=== PATIENT | female | born 1990 | race American Indian/Alaskan Native ===

== ENCOUNTER 2016-07-19 09:44 | Inpatient (IN) | payer MEDICAID, OTHER ==
--- NOTE | 2016-07-19 08:02 | History and Physical Report ---
History of Present Illness Date of examination: 07/19/16 Date of admission: 07/19/2016 Chief complaint: previous History of present illness: 26y/o @ 39+5 weeks with a history of prior delivery. care initiated in the first trimester. initially complicated by THC use that the patient discontinued in . GBS negative P Past History Past Medical History: no pertinent history Past Surgical History: section Social history: single - Obstetrical History Expected Date of Delivery: 07/21/16 Actual Gestation: 39 Week(s) 5 Day(s) : 3 Para: 1 Hx # Term Pregnancies: 1 Number of Pregnancies: 0 Spontaneous Abortions: 0 Induced : 1 Number of Living Children: 1 Medications and Allergies Allergies Allergy/AdvReac Type Severity Reaction Status Date / Time sulfamethoxazole Allergy Itching Verified 01/20/15 20:23 [From Bactrim] trimethoprim [From Bactrim] Allergy Itching Verified 01/20/15 20:23 Home Medications Medication Instructions Recorded Confirmed Last Taken Type No Known Home Medications [No 01/20/15 01/20/15 Unknown History Reported Home Medications] Review of Systems All systems: negative Genitourinary: no vaginal bleeding, no leakage of fluid, no contractions - Physical Exam Breasts: Positive: deferred Cardiovascular: Regular rate Lungs: Positive: Clear to auscultation Abdomen: Positive: normal appearance, soft - Obstetrical FHR: category 1 Uterine Contraction Monitor Mode: External Results All other labs normal. Assessment and Plan - Patient Problems (1) Previous delivery affecting Status: Acute Plan to address problem: scheduled for a RLTCS
[~2016-07-19 09:44] MED LIST: LACTATED RINGERS 1,000 ML IV SCH; PITOCin/NS 20 UNIT/1000ML DRIP 20 UNITS/1,000 ML BAG IV SCH
[2016-07-19] MEDS ORDERED: BICITRA PO NR (10:30)
[2016-07-19] MEDS ORDERED: REGLAN IV NR (10:30)
[2016-07-19] MEDS ORDERED: PEPCID IV NR (10:30)
[2016-07-19] MEDS ORDERED: ANCEF/STERILE WATER 2 GM/20 ML 2 GM/20 ML SYRINGE IV NR (10:30)
--- NOTE | 2016-07-19 10:58 | Anesthesia Day of Surgery ---
Anesthesia Day of Surgery - Day of Surgery Patient Examined: Yes Patient H&P Reviewed: Yes Patient is NPO: Yes
--- NOTE | 2016-07-19 10:58 | Anesthesia Consultation ---
Anesthesia Consult and Med Hx Date of service: 07/19/16 - Airway Anesthetic Teeth Evaluation: Good ROM Head & Neck: Adequate Mental/Hyoid Distance: Adequate Mallampati Class: Class II Intubation Access Assessment: Probably Good - Pre-Operative Health Status ASA Pre-Surgery Classification: ASA2 Proposed Anesthetic Plan: Spinal - Additional Comments Anesthesia Medical History Comments: no medical problems
[2016-07-19] MEDS ORDERED: SODIUM CHLORIDE FLUSH SYRINGE 10 ML IV PRN (11:00)
[2016-07-19 11:05] LABS: Hematocrit 34.7 % (30.3-42.9); Hemoglobin 11.6 gm/dl (10.1-14.3); Mean Corpuscular HGB Conc 33 % (30-34); Mean Corpuscular Hemoglobin 31 pg (28-32); Mean Corpuscular Volume 92 fl (79-97); Platelet Count 242 K/mm3 (140-440); Red Blood Count 3.79 M/mm3 (3.65-5.03); Red Cell Distribution Width 13.3 % (13.2-15.2); White Blood Count 12.2 K/mm3 (4.5-11.0)
[2016-07-19] MEDS ORDERED: BENADRYL IV PRN ×2 (11:30→14:22)
[2016-07-19] MEDS ORDERED: NARCAN 0.4 MG/1 ML IV PRN ×2 (11:30→12:57)
[2016-07-19] MEDS ORDERED: ZOFRAN IV PRN ×2 (11:30→17:45)
[2016-07-19] MEDS ORDERED: DILAUDID IV PRN (11:30)
[2016-07-19] MEDS ORDERED: TORADOL IV PRN (11:30)
[2016-07-19 11:41] LABS: Basophils % (Manual) 0 % (0.0-1.8); Blastocytes % (Manual) 0 %
[2016-07-19 11:42] LABS: Anisocytosis 1+; Diff Status Complete; Polychromasia Few
[2016-07-19] MEDS ORDERED: MORPHINE ONE (11:43)
[2016-07-19] MEDS ORDERED: ePHEDrine SULFATE ONE (11:58)
[2016-07-19] MEDS ORDERED: NACL 0.9% IR ONE (12:22)
[2016-07-19] MEDS ORDERED: WATER FOR IRRIG STERILE IR ONE (12:22)
[2016-07-19] MEDS ORDERED: NACL 0.9% 1000 ML 1,000 ML ONE (12:44)
--- NOTE | 2016-07-19 12:54 | Procedure Note ---
OB Delivery Note - Delivery Date of Delivery: 07/19/16 Surgeon: WIL KRISHNAMURTHY Estimated blood loss: other (750ml) - Section Preop diagnosis: repeat Postop diagnosis: same section procedure: section, repeat low transverse Disposition: PACU Complications: none - Infant A at 1 minute: 9 at 5 minutes: 9 Infant Gender: Male (weight 7lbs 1oz)
--- NOTE | 2016-07-19 12:56 | Operative Report ---
Operative Report Operative Report: Date of surgery: 07/19/2016 Preoperative diagnosis: at 39+3 weeks; previous delivery Postoperative diagnosis: same as above Procedure: Repeat low transverse delivery Surgeon: Hannah Villagran M.D. Anesthesia: Regional Estimated blood loss: 750 mL Findings: Live born male infant with Apgars of 9 and 9 weight 7 lbs. 1 oz. Indications: 26-year-old 011 at 39+ weeks who presents for repeat delivery. Procedure: The patient was taken to the operating room and given regional anesthesia without complication. She was prepped and draped in a normal sterile fashion. A Pfannenstiel skin incision was made down to layer the fascia which was nicked in the midline extended laterally with the Bovie cautery. The superior aspect of the rectus fascia was grasped with [place] clamps x2 and the rectus muscles off sharply. This was done in inferior fashion as well. The rectus muscle midline and peritoneum entered bluntly. An Pieter retractor was then inserted. A bladder blade was placed. The vesicouterine peritoneum was then entered sharply with Metzenbaum scissors. A bladder flap was created digitally. A low transverse uterine incision was then made and extended digitally. There was clear fluid upon entry into the uterine cavity. The head was delivered through the incision with fundal pressure. The cord was clamped and cut x2 and infant was passed off to pediatrics. The placenta was then manually extracted. The uterus was then exteriorized and cleared of clots and debris. The uterine incision was then closed in a running locked fashion with 0 Vicryl additional imbricating stitch was applied for 2 layer closure. The posterior cul-de-sac was then copiously irrigated. The uterus was replaced back into the abdomen and pelvis were the gutters were then irrigated. The Pieter retractor was then removed. The peritoneum was then reapproximated with 3-0 Vicryl incorporating the rectus muscle. The fascia was then closed with 0 Vicryl in a running fashion. The skin was then reapproximated with 3-0 Monocryl on a Eric needle subcuticular fashion. Steri-Strips to place across the incision and a Crede procedures performed at the end of the surgery. A pressure dressing was applied to the incision. The surgery productive of a liveborn male with Apgars of 9 and 9 weight 7 lbs. 1 oz. The patient was taken to the recovery room in stable condition. All sponge laps and needle counts correct x2.
[2016-07-19] MEDS ORDERED: LANSINOH TP PRN (12:57)
[2016-07-19] MEDS ORDERED: TUCKS PAD TP PRN (12:57)
[2016-07-19] MEDS ORDERED: SODIUM CHLORIDE FLUSH SYRINGE 10 ML IV NR (13:00)
[2016-07-19] MEDS ORDERED: ZOFRAN ONE (13:00)
[2016-07-19] MEDS ORDERED: PITOCin/NS 20 UNIT/1000ML DRIP 20 UNITS/1,000 ML BAG IV SCH (13:00)
[2016-07-19] MEDS ORDERED: MORPHINE IV PRN (14:22)
--- NOTE | 2016-07-19 14:22 | Post Anesthesia Evaluation ---
- Post Anesthesia Evaluation Patient Participated: Yes Airway Patent: Yes Stable Respiratory Function: Yes Nausea/Vomiting: No Temp > 96.8F: Yes Pain Manageable: Yes Adequeate Hydration: Yes Anesthesia Complications: No Block Receding Appropriately: Yes Patient on Ventilator: No
[2016-07-19] MEDS ORDERED: TORADOL ONE (18:11)
[2016-07-19 18:20] LABS: Urine Drugs of Abuse Note Disclamer
[2016-07-19] MEDS ORDERED: D5LR 1,000 ML IV SCH (19:00)
[2016-07-20] MEDS: TORADOL PO PRN ×2 (04:20→08:22)
[2016-07-20 06:04] LABS: Hematocrit 27.5 % (30.3-42.9); Hemoglobin 9.2 gm/dl (10.1-14.3)
--- NOTE | 2016-07-20 11:03 | Progress Note ---
Subjective Date of service: 07/20/16 Interval history: 1st POD after Patient is in the bed, relatively comfortable. Pain is mostly controlled with pain meds. Pruritus is controlled with Benadryl. Ambulated well. No residual neurological deficit. No anesthesia complications Objective - Constitutional Vitals: Vital Signs - 12hr 07/20/16 07/20/16 07/20/16 00:00 04:20 09:30 Temperature 98.9 F 98.4 F Pulse Rate [ 76 90 From Monitor] Respiratory 18 18 18 Rate Blood Pressure 126/63 97/62 [Left Arm] - Labs CBC & Chem 7: 07/20/16 05:28 Labs: Abnormal lab results 07/19/16 07/20/16 Range/Units 10:30 05:28 WBC 12.2 H (4.5-11.0) K/mm3 Hgb 9.2 L (10.1-14.3) gm/dl Hct 27.5 L D (30.3-42.9) % Seg Neuts % (Manual) 73.0 H (40.0-70.0) % Seg Neutrophils # Man 8.9 H (1.8-7.7) K/mm3 Monocytes # (Manual) 0.9 H (0.0-0.8) K/mm3
--- NOTE | 2016-07-20 11:22 | Progress Note ---
Assessment and Plan A/P POD#1 s/p repeat c/s doing well male bonding with baby tolerating diet bleeding decreased +flatus routine post op orders Subjective - Subjective Date of service: 07/20/16 Principal diagnosis: repeat c/s Patient reports: appetite normal, voiding normally, pain well controlled, ambulating normally [place]: doing well Objective - Vital Signs Latest vital signs: Vital Signs Temp Pulse Pulse Resp BP BP Pulse Ox 07/20/16 09:30 98.4 F 90 18 97/62 07/20/16 04:20 18 07/20/16 00:00 98.9 F 76 18 126/63 07/19/16 20:50 98.2 F 83 18 97/54 07/19/16 17:44 97.8 F 78 18 106/67 07/19/16 14:25 97.6 F 76 16 112/67 07/19/16 14:10 82 12 106/69 98 07/19/16 14:00 97.6 F 89 12 111/59 98 07/19/16 13:54 15 07/19/16 13:45 75 12 102/64 100 07/19/16 13:30 74 16 103/62 100 07/19/16 13:25 79 16 107/62 100 07/19/16 13:20 82 14 101/59 100 07/19/16 13:15 78 14 104/61 97 07/19/16 13:10 72 18 103/60 97 07/19/16 13:05 79 16 108/66 98 07/19/16 13:00 76 16 104/63 98 07/19/16 12:57 97.6 F 94 H 16 112/61 100 Intake and Output 07/19/16 07/20/16 07/20/16 22:59 06:59 14:59 Intake Total 600 120 120 Output Total 1300 2000 600 Balance -700 -1880 -480 Intake: Oral 600 120 120 Output: Urine 1300 2000 600 Indwelling Catheter 1300 1600 Void 400 600 Other: Total, Intake Amount 240 120 120 Total, Output Amount 900 400 600 - Exam Breasts: Present: normal Cardiovascular: Present: Regular rate, Normal S1 Lungs: Present: Clear to auscultation, Normal air movement Abdomen: Present: normal appearance, soft, normal bowel sounds. Absent: distention, tenderness Vulva: both: normal Uterus: Present: normal, firm, fundal height below umbilicus (3cm below). Absent: bogginess, tenderness Extremities: Present: normal Deep Tendon Reflex Grade: Normal +2 Incision: Present: normal, dry, intact - Labs Labs: Abnormal lab results 07/19/16 07/20/16 Range/Units 10:30 05:28 Hgb 9.2 L (10.1-14.3) gm/dl Hct 27.5 L D (30.3-42.9) % Seg Neuts % (Manual) 73.0 H (40.0-70.0) % Seg Neutrophils # Man 8.9 H (1.8-7.7) K/mm3 Monocytes # (Manual) 0.9 H (0.0-0.8) K/mm3
[2016-07-20] MEDS: MOTRIN PO PRN ×2 (13:14→19:34)
[2016-07-20] MEDS: PERCOCET 5/325 PO PRN ×2 (13:15→21:08)
[2016-07-21] MEDS: MOTRIN PO PRN ×2 (01:46→13:30)
[2016-07-21] MEDS: PERCOCET 5/325 PO PRN ×2 (02:22→09:18)
--- NOTE | 2016-07-21 08:48 | Progress Note ---
Assessment and Plan - Patient Problems (1) Previous delivery affecting Current Visit: Yes Status: Acute Plan to address problem: Patient doing well Discharge home Subjective - Subjective Date of service: 07/21/16 Principal diagnosis: repeat c/s Interval history: Patient doing well. She was without any significant complaints. She is tolerating a regular diet. Patient reports: appetite normal, voiding normally, pain well controlled : doing well Objective - Vital Signs Latest vital signs: Vital Signs Temp Pulse Resp BP 07/21/16 01:00 98.3 F 91 H 20 95/56 07/20/16 16:15 98.7 F 91 H 18 107/60 07/20/16 12:55 99.4 F 97 H 20 100/61 07/20/16 09:30 98.4 F 90 18 97/62 Intake and Output 07/20/16 07/21/16 07/21/16 22:59 06:59 14:59 Intake Total 240 360 Balance 240 360 Intake: Oral 240 Intake, Free Water 360 Other: Total, Intake Amount 240 # Voids Void 1 2 - Exam Abdomen: Present: normal appearance, soft Uterus: Present: normal, firm Incision: Present: normal
--- NOTE | 2016-07-21 08:49 | Discharge Summary ---
Providers - Providers Date of Admission: 07/19/16 09:44 Date of discharge: 07/21/16 Attending physician: WIL KRISHNAMURTHY Primary care physician: MURAL PAINTER Hospitalization Reason for admission: section Delivery: Procedure: section, repeat low transverse Incision: normal baby: male Hospital course: The patient was admitted that he has surgery underwent a scheduled repeat delivery. Please see operative note for details of surgery. Postoperative course was uneventful. Condition at discharge: Good Disposition: DISCHARGED TO HOME OR SELFCARE - Discharge Diagnoses (1) Previous delivery affecting Status: Acute Plan - Discharge Medications Prescriptions: Ferrous Sulfate [Feosol 325 MG tab] 325 mg PO TID #30 tablet Ibuprofen [Motrin] 600 mg PO Q8H PRN #30 tablet PRN Reason: Pain oxyCODONE /ACETAMINOPHEN [Percocet 5/325] 1 tab PO Q6HR PRN #30 tablet PRN Reason: Pain - Provider Discharge Summary Activity: no sex for 6 weeks, no heavy lifting 4 weeks, no strenuous exercise Diet: routine Instructions: routine Additional instructions: [] Smoking cessation referral if applicable(refer to patient education folder for contact #) [] Refer to [facility] Booklet Call your doctor immediately for: * Fever > 100.5 * Heavy vaginal bleeding ( >1 pad per hour) * Severe persistent headache * Shortness of breath * Reddened, hot, painful area to leg or breast * Drainage or odor from incision. * Keep incision clean and dry at all times and follow doctor's instructions regarding bathing/showering Follow-up in 2 weeks for an incision check - Follow up plan
[2016-07-21 14:52] VITALS: BP 100/64
== END 2016-07-21 14:00 | disposition home or self-care (01) | DRG 766 ==
LOC: APU 09:44 → OB 14:28
PROVIDERS: ADMIT Obstetrics & Gynecology; ATTEND Obstetrics & Gynecology
PROC: 10D00Z1 Extraction of Products of Conception, Low, Open Approach (ICD-10-PCS; principal; 2016-07-19)
DX: O34.211 Maternal care for low transverse scar from previous cesarean delivery (principal); Z3A.39 39 weeks gestation of pregnancy; Z37.0 Single live birth; Z88.2 Allergy status to sulfonamides; O26.893 Other specified pregnancy related conditions, third trimester; L29.9 Pruritus, unspecified
CPT/HCPCS: 36415; 80307; 85007; 85014; 85018; 85025; 86850; 86900; 86901; 99211; A6250; G0463; J0690; J1170; J1885; J2270; J2405; J2590; J2765; J7030; J7120; J7121

== ENCOUNTER 2021-08-23 11:30 | Inpatient (IN) | payer MEDICAID ==
[~2021-08-23 11:30] MED LIST changes: -LACTATED RINGERS 1,000 ML IV SCH; -PITOCin/NS 20 UNIT/1000ML DRIP 20 UNITS/1,000 ML BAG IV SCH; +ceFAZolin/STERILE WATER 2 GM/20 ML SYRINGE IV ONE
[2021-08-24 11:59] LABS: Hematocrit 32.4 % (30.3-42.9); Hemoglobin 10.8 gm/dl (10.1-14.3); Mean Corpuscular HGB Conc 33 % (30-34); Mean Corpuscular Volume 88 fl (79-97); Platelet Count 236 K/mm3 (140-440); Red Blood Count 3.67 M/mm3 (3.65-5.03); Red Cell Distribution Width 13.8 % (13.2-15.2)
[2021-08-25] MEDS ORDERED: LACTATED RINGERS 1,000 ML ONE (06:57)
[2021-08-25] MEDS ORDERED: ONDANSETRON 4 MG/2 ML INJ ONE ×2 (07:14→20:14)
[2021-08-25] MEDS ORDERED: ePHEDrine SULFATE 50 MG/1 ML INJ ONE ×2 (07:14→20:14)
[2021-08-25] MEDS ORDERED: PHENYLEPHRINE/NS 1,000 MCG/10 ML SYRINGE (OR USE) IV ONE ×3 (07:14→20:14)
[2021-08-25] MEDS ORDERED: BICITRA ORAL LIQD 30ML PO ONE (08:41)
[2021-08-25] MEDS ORDERED: FAMOTIDINE 20 MG/2 ML INJ IV ONE ×3 (08:41→22:57)
[2021-08-25] MEDS ORDERED: METOCLOPRAMIDE 10 MG/2 ML INJ IV ONE (08:41)
--- NOTE | 2021-08-25 08:41 | History and Physical Report ---
History of Present Illness Date of examination: 08/25/21 Date of admission: 08/25/21 05:40 Chief complaint: Schedule History of present illness: 31-year-old -0-1-2 at 40+3 weeks who presents for scheduled repeat delivery. The patient has a history of 2 prior deliveries. She denies any leakage of fluid or vaginal bleeding. Past History Past Medical History: no pertinent history Past Surgical History: section Social history: - Obstetrical History Expected Date of Delivery: 08/22/21 Actual Gestation: 40 Week(s) 3 Day(s) : 4 Para: 2 Hx # Term Pregnancies: 2 Number of Pregnancies: 0 Spontaneous Abortions: 0 Induced : 1 Number of Living Children: 2 Medications and Allergies Allergies Allergy/AdvReac Type Severity Reaction Status Date / Time sulfamethoxazole Allergy Itching Verified 08/23/21 15:33 [From Bactrim] trimethoprim [From Bactrim] Allergy Itching Verified 08/23/21 15:33 Home Medications Medication Instructions Recorded Confirmed Last Taken Type No Known Home Medications [No 08/23/21 08/23/21 Unknown History Reported Home Medications] Review of Systems All systems: negative Genitourinary: no leakage of fluid, no contractions - Vital Signs Vital signs: Vital Signs Temp Pulse Resp BP Pulse Ox 98.9 F 90 20 102/68 98 08/24/21 11:10 08/24/21 11:10 08/24/21 11:10 08/24/21 11:10 08/24/21 11:10 Temp Pulse Resp BP Pulse Ox 98.2 F 82 20 102/66 99 08/25/21 06:38 08/25/21 07:24 08/24/21 11:10 08/25/21 07:05 08/25/21 07:24 - Physical Exam Breasts: Positive: deferred Cardiovascular: Regular rate Lungs: Positive: Clear to auscultation Abdomen: Positive: normal appearance Results Result Diagrams: 08/24/21 06:00 All other labs normal. Assessment and Plan - Patient Problems (1) Previous delivery affecting Current Visit: No Status: Acute Plan to address problem: Admitted for scheduled delivery Patient has declined tubal ligation
[2021-08-25] MEDS ORDERED: LACTATED RINGERS 1,000 ML IV SCH (08:45)
[2021-08-25] MEDS ORDERED: OXYTOCIN DRIP 30 UNITS/500 ML BAG IV SCH ×2 (09:00→23:00)
[2021-08-25] MEDS ORDERED: ceFAZolin/Water 2 GM/20 ML 2 GM/20 ML SYRINGE IV NR (09:00)
[2021-08-25] MEDS ORDERED: BICITRA ORAL LIQD 30ML ONE ×2 (17:31→22:57)
[2021-08-25] MEDS ORDERED: METOCLOPRAMIDE 10 MG/2 ML INJ ONE ×2 (17:32→22:57)
[2021-08-25] MEDS ORDERED: BUPIVACAINE/PF (0.25%) 2.5 MG/ML 30 ML VIAL INFILTRATI ONE (17:33)
[2021-08-25] MEDS ORDERED: SODIUM CHLORIDE 0.9% 100 ML ONE (17:33)
[2021-08-25] MEDS ORDERED: KETOROLAC 30 MG/1 ML INJ ONE (19:33)
--- NOTE | 2021-08-25 22:44 | Procedure Note ---
OB Delivery Note - Delivery Date of Delivery: 08/25/21 Surgeon: WIL KRISHNAMURTHY Estimated blood loss: other (Qbl 431 mL) - Section Preop diagnosis: repeat Postop diagnosis: same section procedure: section, repeat low transverse Disposition: PACU Complications: none - A at 1 minute: 9 at 5 minutes: 9 Gender: Female (Weight 7 pounds 15 ounces)
--- NOTE | 2021-08-25 22:44 | Operative Report ---
Operative Report Operative Report: Date of surgery: August 25, 2021 Preoperative diagnosis: at 40+1 weeks; previous delivery Postoperative diagnosis: Same as above; breech presentation Procedure: Repeat low transverse delivery Surgeon: Hannah Villagran M.D. Anesthesia: Regional Estimated blood loss:Qbl 431 mL Findings: Liveborn female with Apgars of 9 and 9 weight 7 pounds 15 ounces Indications: 31-year-old at 40+1 weeks who presents for repeat delivery. The patient has a history of 2 prior deliveries and is not a candidate for a vaginal delivery Procedure: The patient was taken to the operating room and given regional anesthesia without complication. She was prepped and draped in a normal sterile fashion. A Pfannenstiel skin incision was made down to layer the fascia which was nicked in the midline extended laterally with the Bovie cautery. The superior aspect of the rectus fascia was grasped with Wes clamps x2 and the rectus muscles off sharply. This was done in inferior fashion as well. The rectus muscle midline and peritoneum entered bluntly. An Pieter retractor was then inserted. A bladder blade was placed. The vesicouterine peritoneum was then entered sharply with Metzenbaum scissors. A bladder flap was created digitally. A low transverse uterine incision was then made and extended digitally. There was clear fluid upon entry into the uterine cavity. The fetus was noted to be in footling breech presentation. The feet were grasped and the infant was delivered through the incision with fundal pressure. The cord was clamped and cut x2 and infant was passed off to pediatrics. The placenta was then manually extracted. The uterus was then exteriorized and cleared of clots and debris. The uterine incision was then closed in a running locked fashion with 0 Vicryl additional imbricating stitch was applied for 2 layer closure. The posterior cul-de-sac was then copiously irrigated. The uterus was replaced back into the abdomen and pelvis were the gutters were then irrigated. The Pieter retractor was then removed. The peritoneum was then reapproximated with 3-0 Vicryl incorporating the rectus muscle. The fascia was then closed with 0 Vicryl in a running fashion. The skin was then reapproximated with 3-0 Monocryl on a Eric needle subcuticular fashion. Steri-Strips to place across the incision and a Crede procedures performed at the end of the surgery. A pressure dressing was applied to the incision. The surgery productive of a liveborn female infant with Apgars of 9 and 9 weight 7 pounds 15 ounces. The patient was taken to the recovery room in stable condition. All sponge laps and needle counts correct x2.
[2021-08-25] MEDS ORDERED: NALOXONE 0.4 MG/1 ML INJ IV PRN (22:45)
[2021-08-25] MEDS ORDERED: ACETAMINOPHEN 325 MG TAB PO PRN (22:45)
[2021-08-25] MEDS ORDERED: LANOLIN/ZINC/DIMETHICONE (LANSINOH) 7 GM TP PRN (22:45)
[2021-08-25] MEDS ORDERED: WITCH HAZEL/ GLYCERIN PAD TP PRN (22:45)
[2021-08-25] MEDS ORDERED: MORPHINE 4 MG/1 ML INJ IV PRN (22:45)
[2021-08-25] MEDS ORDERED: MAGNESIUM HYDROXIDE (MOM) ORAL LIQD UDC PO PRN (22:45)
[2021-08-25] MEDS ORDERED: WATER FOR IRRIG STERILE 1,500 ML BOTTLE IR ONE (23:36)
[2021-08-25] MEDS ORDERED: SODIUM CHLORIDE 0.9% IRR 1,500 ML BOTTLE IR ONE (23:36)
[2021-08-26] MEDS ORDERED: KETOROLAC 30 MG/1 ML INJ ONE (00:17)
[2021-08-26] MEDS ORDERED: PROMETHAZINE 25 MG TAB PO PRN (00:42)
[2021-08-26] MEDS ORDERED: MORPHINE 4 MG/1 ML INJ IV PRN (00:42)
[2021-08-26] MEDS ORDERED: NALOXONE 0.4 MG/1 ML INJ IV PRN (00:42)
[2021-08-26] MEDS ORDERED: PROMETHAZINE 25 MG RECT SUPP PR PRN (00:42)
[2021-08-26] MEDS ORDERED: ONDANSETRON 4 MG/2 ML INJ IV PRN (00:42)
[2021-08-26] MEDS ORDERED: HYDROmorphone 1 MG/1 ML INJ IV PRN ×2 (00:42)
--- NOTE | 2021-08-26 00:44 | Anesthesia Consultation ---
Anesthesia Consult and Med Hx Date of service: 08/25/21 - Airway Anesthetic Teeth Evaluation: Good, Partials ROM Head & Neck: Adequate Mental/Hyoid Distance: Adequate Mallampati Class: Class II Intubation Access Assessment: Probably Good - Pulmonary Exam CTA: Yes - Cardiac Exam Cardiac Exam: RRR - Pre-Operative Health Status ASA Pre-Surgery Classification: ASA2 Proposed Anesthetic Plan: Spinal - Pulmonary Hx Smoking: No Hx Asthma: No Hx Respiratory Symptoms: No SOB: No COPD: No Home Oxygen Therapy: No Hx Pneumonia: No Hx Sleep Apnea: No - Cardiovascular System Hx Hypertension: No Hx Coronary Artery Disease: No Hx Heart Attack/AMI: No Hx Angina: No Hx Percutaneous Transluminal Coronary Angioplasty (PTCA): No Hx Cardia Arrhythmia: No Hx Pacemaker: No Hx Internal Defibrillator: No Hx Valvular Heart Disease: No Hx Heart Murmur: No Hx Peripheral Vascular Disease: No - Central Nervous System Hx Neuromuscular Disorder: No Hx Seizures: No CVA: No Hx Back Pain: No Hx Psychiatric Problems: No - Gastrointestinal Hx Ulcer: No Hx Gastroesophageal Reflux Disease: No - Endocrine Hx Renal Disease: No Hx End Stage Renal Disease: No Hx Cirrhosis: No Hx Liver Disease: No Hx Insulin Dependent Diabetes: No Hx Non-Insulin Dependent Diabetes: No Hx Thyroid Disease: No Hx Hypothyroidism: No Hx Hyperthyroidism: No - Hematic Hx Anemia: No Hx Sickle Cell Disease: No - Other Systems Hx Alcohol Use: No Hx Substance Use: No Hx Cancer: No Hx Obesity: No
--- NOTE | 2021-08-26 00:45 | Anesthesia Day of Surgery ---
Anesthesia Day of Surgery - Day of Surgery Patient Examined: Yes Patient H&P Reviewed: Yes Patient is NPO: Yes Beta Blockers: No Cardiac Clearance: No Pulmonary Clearance: No Chidi's Test: N/A
--- NOTE | 2021-08-26 00:46 | Progress Note ---
Spinal Anesthesia Block - Spinal Anesthesia Block Start Time: 23:04 Stop Time: 23:10 Performed by:: LASHAUN RAMIREZ Procedure: The patient was placed in a sitting position on the OR table and monitors applied. A timeout was performed immediately prior to the start of the procedure. The patient was Prepped and draped in a sterile fashion and the skin was localized with 3 mL 1% lidocaine at L[4]-L[5] interspace. An introducer was placed into the back between L4-L5 and a 25g spinal needle was advanced into the intrathecal space until clear, free flowing CSF was observed. 1.8cc of 0.75% hyperbaric bupivacaine + 0.5mcg Precedex was injected into the intrathecal space and the spinal needle was removed. The patient tolerated the procedure well and there were no immediate complications noted.
[2021-08-26] MEDS ORDERED: fentaNYL-BUPIV 2 MCG/ML-0.125% 200 MCG/100 ML BAG EPIDURAL SCH (01:00)
[2021-08-26] MEDS ORDERED: BICITRA ORAL LIQD 30ML PO ONE (03:18)
[2021-08-26] MEDS ORDERED: METOCLOPRAMIDE 10 MG/2 ML INJ IV NR (04:00)
[2021-08-26] MEDS ORDERED: FAMOTIDINE 20 MG/2 ML INJ IV NR (04:00)
[2021-08-26] MEDS: oxyCODONE /ACETAMINOPHEN 5-325MG TAB PO PRN ×4 (04:33→22:42)
[2021-08-26] MEDS: KETOROLAC 30 MG/1 ML INJ IV PRN ×2 (07:01→13:52)
--- NOTE | 2021-08-26 11:18 | Progress Note ---
Assessment and Plan - Patient Problems (1) Status post repeat low transverse section Current Visit: Yes Status: Acute Plan to address problem: Continue routine PP orders Keep dressing clean and dry, remove on POD#2 Anticipate d/c home in 24 - 48 hrs if stable (2) Anemia Current Visit: Yes Status: Acute Qualifiers: Anemia type: iron deficiency Plan to address problem: Asymptomatic Subjective - Subjective Date of service: 08/26/21 Principal diagnosis: S/P repeat C/S; POD#1 Interval history: 31-year-old -0-1-2 at 40+3 weeks who presents for scheduled repeat delivery. The patient has a history of 2 prior deliveries. She denies any leakage of fluid or vaginal bleeding. Delivered viable female via C/S. Stable on POD#1. Patient reports: appetite normal (clear liquid diet), voiding normally (catheter in place), pain well controlled (with medications), no flatus, no bowel movement [place]: doing well, nursing well Objective - Vital Signs Latest vital signs: Vital Signs Temp Pulse Resp BP Pulse Ox Pulse Ox 08/26/21 09:59 20 08/26/21 08:05 98 08/26/21 07:24 98.1 F 85 16 103/68 99 08/26/21 02:46 98.5 F 75 18 94/54 97 08/26/21 02:45 98 08/26/21 01:30 98.7 F 77 17 103/54 99 08/26/21 01:15 80 21 83/49 100 08/26/21 01:00 83 18 99/50 100 08/26/21 00:45 74 14 89/49 99 08/26/21 00:40 74 14 79/58 100 08/26/21 00:35 79 18 92/48 100 08/26/21 00:30 98.2 F Intake and Output 08/25/21 08/26/21 08/26/21 23:59 07:59 15:59 Intake Total 1500 120 Output Total 650 Balance 850 120 Intake: IV 1500 Oral 120 Output: Urine 650 Indwelling 150 Indwelling Catheter 400 Other: Total, Intake Amount 120 Total, Output Amount 400 Estimated Blood Loss 75 - Exam Breasts: Present: normal Cardiovascular: Present: Regular rate Lungs: Present: Normal air movement Abdomen: Present: soft, tenderness Uterus: Present: firm, fundal height below umbilicus (U-2) Extremities: Present: normal Deep Tendon Reflex Grade: Normal +2 Incision: Present: dressed (no shadow drainage noted)
[2021-08-26] MEDS ORDERED: LACTATED RINGERS 1000 ML IV SOLN IV SCH (13:30)
[2021-08-26 16:14] LABS: Hematocrit 26.5 % (30.3-42.9); Hemoglobin 8.9 gm/dl (10.1-14.3)
[2021-08-27] MEDS: oxyCODONE /ACETAMINOPHEN 5-325MG TAB PO PRN ×3 (03:39→22:56)
[2021-08-27] MEDS: IBUPROFEN 600 MG TAB PO PRN ×2 (05:46→17:09)
--- NOTE | 2021-08-27 15:08 | Progress Note ---
Assessment and Plan - Patient Problems (1) Status post repeat low transverse section Current Visit: Yes Status: Acute Plan to address problem: Continue routine PP orders Shower, remove dressing Anticipate d/c home in 24 hrs if stable (2) Anemia Current Visit: Yes Status: Acute Qualifiers: Anemia type: iron deficiency Plan to address problem: Asymptomatic Subjective - Subjective Date of service: 08/27/21 Principal diagnosis: S/P repeat C/S; POD#2 Interval history: 31-year-old -0-1-2 at 40+3 weeks who presents for scheduled repeat delivery. The patient has a history of 2 prior deliveries. She denies any leakage of fluid or vaginal bleeding. Delivered viable female via C/S. Stable on POD#2. Patient reports: appetite normal, voiding normally, pain well controlled (with medication), flatus, ambulating normally, no bowel movement [place]: doing well, bottle feeding Objective - Vital Signs Latest vital signs: Vital Signs Temp Pulse Resp BP Pulse Ox Pulse Ox 08/27/21 08:44 97 08/27/21 07:50 98.2 F 79 18 106/71 99 08/27/21 00:48 97.9 F 71 20 103/71 100 08/26/21 20:55 97.6 F 75 20 97/73 100 08/26/21 19:15 97 08/26/21 17:31 98.0 F 84 18 99/66 100 Intake and Output 08/26/21 08/27/21 08/27/21 23:59 07:59 15:59 Intake Total 840 240 240 Output Total 500 Balance 340 240 240 Intake: Oral 480 240 240 Intake, Free Water 360 Output: Urine 500 Void 500 Other: Total, Intake Amount 120 120 240 Total, Output Amount 300 # Voids Void 2 1 1 - Exam Breasts: Present: normal Cardiovascular: Present: Regular rate Lungs: Present: Normal air movement Abdomen: Present: soft, tenderness Uterus: Present: firm, fundal height below umbilicus (U-3) Extremities: Present: normal Deep Tendon Reflex Grade: Normal +2 Incision: Present: dressed (no shadow drainage or bleeding noted) - Labs Labs: Abnormal lab results 08/26/21 Range/Units 15:46 Hgb 8.9 L (10.1-14.3) gm/dl Hct 26.5 L (30.3-42.9) %
[2021-08-28] MEDS: IBUPROFEN 600 MG TAB PO PRN (03:06)
--- NOTE | 2021-08-28 07:51 | Progress Note ---
Assessment and Plan A: POD#3 s/p repeat at term Asymptomatic anemia P: Routine postop care Discharge today with follow up in 2 wks for incision check Subjective - Subjective Date of service: 08/28/21 Principal diagnosis: S/P repeat C/S; POD#3 Interval history: Patient reports some tingling in feet overnight and would like to speak to anesthesia personnel. Decreasing lochia. Pain well controlled. Plus flatus. No bowel movement. Patient reports: appetite normal, voiding normally, pain well controlled, flatus, ambulating normally, no bowel movement [place]: doing well Objective - Vital Signs Latest vital signs: Vital Signs Temp Pulse Resp BP Pulse Ox Pulse Ox 08/27/21 23:10 98.9 F 86 20 105/66 98 08/27/21 22:56 12 08/27/21 20:10 98 08/27/21 16:01 98.5 F 77 18 108/62 100 08/27/21 08:44 97 08/27/21 07:50 98.2 F 79 18 106/71 99 Intake and Output 08/27/21 08/28/21 08/28/21 22:59 06:59 14:59 Intake Total 600 360 Balance 600 360 Intake: Oral 600 360 Other: Total, Intake Amount 120 120 # Voids Void 1 1 - Exam Breasts: Present: deferred Abdomen: Present: soft, distention (mild ) Uterus: Present: fundal height at umbilicus Extremities: Present: edema (trace) Incision: Present: intact (with steristrips )
--- NOTE | 2021-08-28 07:53 | Discharge Summary ---
Providers - Providers Date of Admission: 08/25/21 05:40 Date of discharge: 08/28/21 Attending physician: WIL KRISHNAMURTHY Primary care physician: WIL KRISHNAMURTHY Hospitalization Reason for admission: section Delivery: Procedure: section, repeat low transverse Procedure details: Please see operative report Episiotomy: none Laceration: none Incision: intact Other procedures: none complications: none Discharge diagnosis: IUP at term delivered baby: female Hospital course: Patient presented for scheduled section which she tolerated well. The remainder of her postoperative course was uncomplicated and she met discharge criteria on postoperative day #3. She will follow-up in the office in 2 weeks for an incision check. Condition at discharge: Stable Disposition: 01 HOME / SELF CARE / HOMELESS - Discharge Diagnoses (1) Term of female Status: Acute (2) Malpresentation of fetus Status: Acute Qualifiers: malpresentation type: breech Fetus number: single or unspecified fetus Qualified Code(s): O32.1XX0 - Maternal care for breech presentation, not applicable or unspecified (3) Anemia Status: Acute Qualifiers: Anemia type: iron deficiency (4) Status post repeat low transverse section Status: Acute (5) Previous delivery affecting Status: Acute Plan - Discharge Medications Prescriptions: Ibuprofen [Motrin] 800 mg PO Q8HR PRN #60 tablet PRN Reason: Pain , Severe (7-10) oxyCODONE /ACETAMINOPHEN [Percocet 5/325] 1 tab PO Q6HR PRN #30 tablet PRN Reason: Pain - Provider Discharge Summary Activity: routine, no sex for 6 weeks, no heavy lifting 4 weeks, no strenuous exercise Diet: routine Instructions: routine Additional instructions: [] Smoking cessation referral if applicable(refer to patient education folder for contact #) [] Refer to [facility] Booklet Call your doctor immediately for: * Fever > 100.5 * Heavy vaginal bleeding ( >1 pad per hour) * Severe persistent headache * Shortness of breath * Reddened, hot, painful area to leg or breast * Drainage or odor from incision. * Keep incision clean and dry at all times and follow doctor's instructions regarding bathing/showering - Follow up plan Follow up: WIL KRISHNAMURTHY MD [Primary Care Provider] - 14 Days (Please call to schedule incision check)
--- NOTE | 2021-08-28 08:09 | Progress Note ---
Subjective Date of service: 08/25/21 Principal diagnosis: S/P repeat C/S; POD#3 Interval history: Pt stated that she started that overnight she started feeling some soreness/aching along her spine, to include the neck region. Pt has full range of motion and pain does not affect ADL. Nothing she does makes it worse or better. Rated as a low grade ache. Advised to monitor until her follow up visit and if it gets worse to report to the nearest ER. Objective - Constitutional Vitals: Vital Signs - 12hr 08/27/21 08/27/21 08/27/21 20:10 22:56 23:10 Temperature 98.9 F Pulse Rate 86 Respiratory 12 20 Rate Blood Pressure 105/66 O2 Sat by Pulse 98 Oximetry O2 Sat by Pulse 98 Oximetry [ Throughout] - Labs CBC & Chem 7: 08/26/21 15:46
[2021-08-28 13:36] VITALS: BP 112/76
== END 2021-08-28 12:55 | disposition home or self-care (01) | DRG 766 ==
LOC: APU 08-25 05:40 → OB 08-26 02:58
PROVIDERS: ADMIT Obstetrics & Gynecology; ATTEND Obstetrics & Gynecology
PROC: 10D00Z1 Extraction of Products of Conception, Low, Open Approach (ICD-10-PCS; principal; 2021-08-25)
DX: O32.1XX0 Maternal care for breech presentation, not applicable or unspecified (principal); Z3A.40 40 weeks gestation of pregnancy; Z37.0 Single live birth; O34.211 Maternal care for low transverse scar from previous cesarean delivery; Z20.822 Contact with and (suspected) exposure to COVID-19; O90.81 Anemia of the puerperium; Z88.8 Allergy status to other drugs, medicaments and biological substances
CPT/HCPCS: 36415; 85014; 85018; 85027; 86592; 86850; 86900; 86901; 99211; G0378; J3490; G0463; J0690; J1885; J2370; J2405; J2765; U0003